=== PATIENT | male | born 1975 | race Caucasian/White ===

== ENCOUNTER 2022-07-12 11:59 | Emergency (ER) | payer OTHER ==
[~2022-07-12] VITALS: Ht 193 cm; Wt 148.3 kg
[2022-07-12 13:40] LABS: BASO % 0.3 % (0.0-1.0); EOS # 0.1 10^3/uL (0.0-0.5); EOS % 1.1 % (0.0-3.0); HEMATOCRIT 41.9 % (42.0-52.0); HEMOGLOBIN 13.8 g/dl (13.5-17.5); LYMPH # 1.2 10^3/uL (1.5-5.0); MEAN CORPUSCULAR HEMOGLOBIN 31.4 pg (27.0-33.0); MEAN CORPUSCULAR HGB CONC 32.9 g/dl (32.0-36.5); MEAN CORPUSCULAR VOLUME 95.2 fl (80.0-96.0); MONO # 0.6 10^3/uL (0.0-0.8); MONO % 5.3 % (2.0-8.0); NEUTROPHILS # 9.8 10^3/uL (1.5-8.5); NEUTROPHILS % 82.9 % (36.0-66.0); PLATELET COUNT, AUTOMATED 250 10^3/uL (150-450); WHITE BLOOD COUNT 11.8 10^3/uL (4.0-10.0)
[2022-07-12 14:04] LABS: ERYTHROCYTE SEDIMENTATION RATE 55 mm/hr (0-15)
[2022-07-12] MEDS ORDERED: cefTRIAXone SOD 1 GM in D5W MINI-BAG PLUS 50 ML IV ONE (14:35)
[2022-07-12] MEDS ORDERED: AMOX875T2 PO (14:51)
[2022-07-12 15:38] VITALS: BP 137/78
== END 2022-07-12 15:41 | disposition home or self-care (01) ==
LOC: M ED 11:59
DX: L08.9 Local infection of the skin and subcutaneous tissue, unspecified (principal); S71.151A Open bite, right thigh, initial encounter; S70.11XA Contusion of right thigh, initial encounter; W54.0XXA Bitten by dog, initial encounter; Y92.89 Other specified places as the place of occurrence of the external cause
CPT/HCPCS: 80047; 83605; 85025; 85652; 86140; 96365; 99284; J0696